=== PATIENT | female | born 1995 | race Caucasian/White ===

== ENCOUNTER 2017-04-01 13:43 | Emergency (ER) | payer OTHER ==
[~2017-04-01] VITALS: Ht 162.6 cm; Wt 81.6 kg
[2017-04-01 13:50] VITALS: BP 152/77
--- NOTE | 2017-04-01 13:53 | NUR ---
PT AA&OX4 AT THIS TIME; RR EVEN/UNLABORED AT THIS TIME; STEADY GAIT; PT TO ER LOBBY AWAITING OPEN BED.
--- NOTE | 2017-04-01 16:05 | NUR ---
PT TRIAGED, WAITING FOR ER BED. ERMD AWARE OF PATIENT STATUS.
--- NOTE | 2017-04-01 18:29 | NUR ---
21F BIB SELF C/O COUGH WITH SORE THROAT AND CHILLS X 2 WEEKS. HX: PT DENIES RX: PT DENIES.DENIES N/V/D; SKIN IS PINK/WARM/DRY; AAOX4 WITH EVEN AND STEADY GAIT; LUNGS CLEAR BL; HR EVEN AND REGULAR; PT DENIES ANY FEVER, CP, SOB AT THIS TIME; PATIENT STATES PAIN OF 9/10 AT THIS TIME.
[2017-04-01 18:51] VITALS: BP 118/70
--- NOTE | 2017-04-01 18:51 | NUR ---
Patient discharged with v/s stable. Written and verbal after care instructions given and explained. Patient alert, oriented and verbalized understanding of instructions. Ambulatory with steady gait. All questions addressed prior to discharge. ID band removed. Patient advised to follow up with PMD. Rx of AZITHROMYCIN & CODEINE given. Patient educated on indication of medication including possible reaction and side effects. Opportunity to ask questions provided and answered.
== END 2017-04-01 18:51 | disposition home or self-care (01) ==
LOC: MED 13:43
DX: J20.9 Acute bronchitis, unspecified (principal); Z88.0 Allergy status to penicillin
CPT/HCPCS: 99283

== ENCOUNTER 2018-03-03 12:00 | Emergency (ER) | payer OTHER ==
[~2018-03-03] VITALS: Ht 165.1 cm; Wt 76.2 kg
[2018-03-03 12:05] VITALS: BP 129/82
--- NOTE | 2018-03-03 12:10 | NUR ---
22 YO F BIB SELF W/ C/O DRY COUGH SINCE JANUARY. STATES, "I THINK I HAVE BRONCHITIS". PT STATES SHE SAW PMD FOR SAME REASON, GIVEN ANTIBIOTICS BUT THEY DID NOT HELP. PT RR EVEN AND UNLABORED, LUNGS BL CLEAR. DENIES N/V/D/FEVERS. STATES COUGH WORSE AT NIGHT, UNABLE TO SLEEP. PT AAOX4, GCS 15. CMS INTACT. ABD SOFT, NON-TENDER. BOWEL SOUNDS ACTIVE X4. AMBULATORY W/ STEADY GAIT. ER MD NOTIFIED OF PT STATUS.PT NEEDS MET, SAFETY PRECAUTIONS IN PLACE. WILL CONTINUE TO MONITOR.
[2018-03-03] MEDS ORDERED: ALBUTEROL SULFATE/IPRATROPIU 3 ML SOL IH ONE (12:35)
--- NOTE | 2018-03-03 12:51 | NUR ---
RT AT BEDSIDE FOR BREATHING TX
--- NOTE | 2018-03-03 13:35 | NUR ---
PT TAKEN TO RADIOLOGY WITH TECH PT AMBULATORY WITH STEADY GATE.
--- NOTE | 2018-03-03 14:00 | NUR ---
PT RESTING IN BED IN NO APPEARENT DISTRESS. RR EVEN AND UN LABORED. PT DENIES ANY PAIN AT THIS TIME
[2018-03-03 14:42] VITALS: BP 134/76
--- NOTE | 2018-03-03 14:42 | NUR ---
Patient discharged with v/s stable. Written and verbal after care instructions given and explained. Patient alert, oriented and verbalized understanding of instructions. Ambulatory with steady gait. All questions addressed prior to discharge. ID band removed. Patient advised to follow up with PMD. Rx of AZITHROMYCIN, PROMETHAZINE DM given. Patient educated on indication of medication including possible reaction and side effects. Opportunity to ask questions provided and answered.
== END 2018-03-03 14:42 | disposition home or self-care (01) ==
LOC: MED 12:00
DX: R05 Cough (principal); F17.200 Nicotine dependence, unspecified, uncomplicated; Z88.0 Allergy status to penicillin
CPT/HCPCS: 71046; 81025; 94640; 99283; J7620

== ENCOUNTER 2018-08-15 14:59 | Emergency (ER) | payer OTHER ==
[~2018-08-15] VITALS: Ht 162.6 cm; Wt 84.1 kg
[2018-08-15 15:21] VITALS: BP 112/68
--- NOTE | 2018-08-15 15:42 | NUR ---
PATIENT PRESENTS TO ED WITH C/O RAISED RED LUMPS ON ENTIRE BODY FOR APPROX 2 WEEKS WHILE SHE WAS VACATIONING IN [place]. PT STATED SHE ALSO HAS URINARY BURNING SENSATION AND FREQUENCY. DENIES N/V. PT DENIES ANY FEVER, OR SOB AT THIS TIME. PATIENT STATES GENERALIZED PAIN OF 7/10 AT THIS TIME; VSS; PATIENT POSITIONED FOR COMFORT; HOB ELEVATED; BEDRAILS UP X1; BED DOWN.
[2018-08-15] MEDS ORDERED: predniSONE 20 MG TAB PO ONE (16:10)
[2018-08-15 16:54] VITALS: BP 130/72
--- NOTE | 2018-08-15 16:54 | NUR ---
Patient discharged with v/s stable. Written and verbal after care instructions given and explained. Patient alert, oriented and verbalized understanding of instructions. Ambulatory with steady gait. All questions addressed prior to discharge. ID band removed. Patient advised to follow up with PMD. Rx of PREDNISONE 20MG, KEFLEX 500MG AND BENADRYL ALLERGY 25MG given. Patient educated on indication of medication including possible reaction and side effects. Opportunity to ask questions provided and answered.
== END 2018-08-15 16:54 | disposition home or self-care (01) ==
LOC: MED 14:59
DX: R21 Rash and other nonspecific skin eruption (principal); R30.0 Dysuria; Z88.0 Allergy status to penicillin
CPT/HCPCS: 81002; 81025; 87086; 99283; J7512